=== PATIENT | female | born 1990 | race Hispanic/Latino ===

== ENCOUNTER 2021-07-28 13:50 | Inpatient (IN) | payer MEDICAID, OTHER, SELFPAY ==
[2021-07-28 14:36] VITALS: BMI 26.9
[2021-07-28] MEDS ORDERED: hydrALAZINE 20 MG/ML VIAL SLOW IVP PRN ×2 (14:55→23:20)
[2021-07-28] MEDS ORDERED: Methylergonovine 0.2 MG/ML VIAL IM PRN (14:55)
[2021-07-28] MEDS ORDERED: Butorphanol Tartrate 1 MG/ML VIAL SLOW IVP PRN (14:55)
[2021-07-28] MEDS ORDERED: Lidocaine 1% (PF) 30 ML VIAL SC PRN (14:55)
[2021-07-28] MEDS ORDERED: HYDROcodone/Acetaminophen 5/325 mg Tablet PO PRN ×3 (14:55→23:20)
[2021-07-28] MEDS ORDERED: Acetaminophen 500 MG TAB PO PRN (14:55)
[2021-07-28] MEDS ORDERED: Ondansetron PF 4 MG/2 ML Vial IVP PRN ×4 (14:55→23:30)
[2021-07-28] MEDS ORDERED: Promethazine HCl 25 MG/ML VIAL IM PRN ×3 (14:55→23:30)
[2021-07-28] MEDS ORDERED: Misoprostol 200 MCG TAB PR PRN (14:55)
[2021-07-28] MEDS ORDERED: Diphenoxylate HCl/Atropine Tablet PO PRN ×2 (14:55→23:20)
[2021-07-28] MEDS ORDERED: Ibuprofen 800 MG TAB PO PRN (14:55)
[2021-07-28] MEDS ORDERED: Lactated Ringer's 1,000 ML IV SCH (15:00)
[2021-07-28] MEDS ORDERED: NS w/ Oxytocin 30 units 500 ML IV SCH (15:00)
[2021-07-28] MEDS ORDERED: NS w/ Oxytocin 30 units 500 ML ONE ×2 (15:20→20:11)
[2021-07-28] MEDS ORDERED: Lidocaine 1% (PF) 30 ML VIAL ONE (15:23)
[2021-07-28 15:27] LABS: Hemoglobin 11.5 g/dL (12.0-15.5); Mean Corpuscular HGB CONC 31.9 g/dL (32.0-36.0); Mean Corpuscular Hemoglobin 27.8 pg (27.0-33.0); Mean Platelet Volume 10.2 fl (7.4-10.4); Platelet Count 181 10x3/uL (150-450); RBC Distribution Width 13.7 % (11.5-14.5); Red Blood Cell (RBC) Count 4.14 10x6/uL (3.90-5.03); White Blood Cell (WBC) Count 10.9 10x3/uL (3.5-10.5)
[2021-07-28 15:56] LABS: Hep B Surf Ag Non-Reactive S/CO (NonReactive)
[2021-07-28 16:13] LABS: Syphilis Antibody Index 15.23 S/CO (<1.00 Non-Reactive)
[2021-07-28 16:21] LABS: HBSAg Index 0.18 S/CO (0-0.99)
[2021-07-28] MEDS: Fentanyl 2 mcg/Bup 0.1% Cadd 100 ML ONE (16:27)
[2021-07-28] MEDS ORDERED: diphenhydrAMINE 50 MG/ML VIAL IVP PRN ×2 (16:45→23:30)
[2021-07-28] MEDS ORDERED: Fentanyl 2 mcg/Bupivacaine 0.1% Cassette 100 ML EPIDURAL SCH ×2 (16:45→23:30)
[2021-07-28] MEDS ORDERED: Acetaminophen 325 MG TAB PO PRN ×2 (16:45→23:30)
[2021-07-28] MEDS ORDERED: Communication Order-Pharmacy FS SCH ×2 (16:45→23:30)
[2021-07-28] MEDS ORDERED: Naloxone HCl 0.4 mg/ml Vial IVP PRN ×4 (16:45→23:30)
[2021-07-28] MEDS ORDERED: Hydrocerin (Eucerin) Cream 120 gm Jar TOP PRN ×2 (16:45→23:30)
[2021-07-28] MEDS ORDERED: ePHEDrine Sulfate 50 MG/10 ML VIAL SLOW IVP PRN ×2 (16:45→23:30)
[2021-07-28] MEDS ORDERED: Lactated Ringer's 1,000 ML IV PRN (17:25)
[2021-07-28] MEDS ORDERED: Carboprost 250 MCG/ML AMP ONE ×2 (19:42→20:11)
[2021-07-28] MEDS ORDERED: Methylergonovine 0.2 MG/ML VIAL ONE (19:42)
[2021-07-28] MEDS ORDERED: Misoprostol 200 MCG TAB ONE (19:42)
[2021-07-28 19:47] LABS: SARS-CoV-2 NAA Rapid Test Not Detected (NotDetected)
[2021-07-28] MEDS ORDERED: Tranexamic Acid 1,000 MG/10 ML VIAL ONE ×2 (20:03→20:10)
[2021-07-28] MEDS: Carboprost 250 MCG/ML AMP IM PRN ×2 (20:04→20:19)
[2021-07-28 21:26] LABS: Syphilis Antibody REACTIVE (Nonreactive)
[2021-07-28] MEDS ORDERED: diphenhydrAMINE 25 MG CAP PO PRN (23:20)
[2021-07-28] MEDS ORDERED: Bisacodyl 10 MG SUPP PR PRN (23:20)
[2021-07-28] MEDS ORDERED: Boostrix 0.5 ML (Tdap) VIAL IM ONE (23:20)
[2021-07-28] MEDS ORDERED: Benzocaine-Menthol 82.5 ML CAN TOP PRN (23:20)
[2021-07-28] MEDS ORDERED: Lanolin Ointment 7 GM TUBE TOP PRN (23:20)
[2021-07-28] MEDS ORDERED: Milk Of Magnesia 30 ML UDCUP PO PRN (23:20)
[2021-07-28] MEDS ORDERED: Lactated Ringer's 500 ML IV PRN (23:30)
[2021-07-29] MEDS: Fentanyl 2 mcg/Bup 0.1% Cadd 100 ML ONE (00:26)
[2021-07-29 01:15] LABS: Mean Corpuscular HGB CONC 33.4 g/dL (32.0-36.0); Mean Corpuscular Hemoglobin 28.2 pg (27.0-33.0); Mean Corpuscular Volume 84.5 fl (81.6-98.3); RBC Distribution Width 13.7 % (11.5-14.5); Red Blood Cell (RBC) Count 4.25 10x6/uL (3.90-5.03); White Blood Cell (WBC) Count 15.1 10x3/uL (3.5-10.5)
[2021-07-29 01:16] LABS: Platelet Count 155 10x3/uL (150-450)
[2021-07-29 01:32] LABS: MDiff Complete? YES
[2021-07-29 01:37] LABS: Band 14 % (5-11); Lymphocytes 4 % (21-51); Monocytes 5 % (0-10); Neutrophil 77 % (42-75)
[2021-07-29 01:38] LABS: Platelet Morphology Comment Appears Adequate
[2021-07-29 01:39] LABS: D-Dimer Test 6.88 mg/L FEU (0.19-0.50); INR-International Normal Ratio 0.9; PTT 30.8 sec (22.0-33.0); Platelet Clumps SLIGHT; Prothrombin Time 10.3 sec (9.5-12.1); RBC Morphology Normal
[2021-07-29] MEDS ORDERED: Azithromycin 1,000 MG, Admixture Fee 1 EACH in Sodium Chloride 0.9% 500 ML IVPB SCH (06:15)
[2021-07-29] MEDS: CEFAZOLIN 2 GM in Premix Bag 1 BAG IVPB SCH ×3 (06:25→21:39)
[2021-07-29] MEDS: metroNIDAZOLE 500 MG in Premix Bag 1 BAG IVPB SCH ×3 (07:50→22:37)
[2021-07-29 08:42] LABS: #Monocytes 0.7 10x3/uL (0.0-1.1); %Basophils 0.1 % (0.0-2.0); %Lymphocytes 12.6 % (18.0-47.0); %Monocytes 4.9 % (0.0-10.0); %Neutrophils 81.9 % (40.0-75.0); Hemoglobin 11.2 g/dL (12.0-15.5); Mean Corpuscular HGB CONC 32.5 g/dL (32.0-36.0); Mean Corpuscular Hemoglobin 27.9 pg (27.0-33.0); Mean Platelet Volume 9.9 fl (7.4-10.4); Platelet Count 149 10x3/uL (150-450); Red Blood Cell (RBC) Count 4.01 10x6/uL (3.90-5.03); White Blood Cell (WBC) Count 13.5 10x3/uL (3.5-10.5)
[2021-07-29] MEDS: Ibuprofen 800 MG TAB PO SCH ×3 (10:31→21:37)
[2021-07-29] MEDS: Prenatal Vitamin 1 TAB PO SCH (11:29)
[2021-07-29] MEDS: Ferrous Sulfate 325 MG TAB PO SCH ×2 (11:29→16:31)
[2021-07-29] MEDS: Docusate Calcium (SURFAK) 240 MG CAP PO SCH ×2 (11:29→21:37)
[2021-07-30] MEDS: Ibuprofen 800 MG TAB PO SCH (05:38)
[2021-07-30] MEDS: CEFAZOLIN 2 GM in Premix Bag 1 BAG IVPB SCH (05:39)
[2021-07-30] MEDS: metroNIDAZOLE 500 MG in Premix Bag 1 BAG IVPB SCH (06:29)
[2021-07-30 07:55] VITALS: BP 106/64; TEMP 97.9
[2021-07-30] MEDS: Prenatal Vitamin 1 TAB PO SCH (08:54)
[2021-07-30] MEDS: Docusate Calcium (SURFAK) 240 MG CAP PO SCH (08:54)
[2021-07-30] MEDS: Ferrous Sulfate 325 MG TAB PO SCH (08:54)
== END 2021-07-30 11:58 | disposition home or self-care (01) | DRG 768 ==
LOC: CSHLD/OP 13:50 → UNDOADMIN 15:39 → CSHLD 15:39 → CSHANTE 15:39
PROVIDERS: ADMIT Family Medicine; ATTEND Family Medicine
PROC: 10E0XZZ Delivery of Products of Conception, External Approach (ICD-10-PCS; principal; 2021-07-28)
PROC: 0W3R7ZZ Control Bleeding in Genitourinary Tract, Via Natural or Artificial Opening (ICD-10-PCS; 2021-07-28)
PROC: 0KQM0ZZ Repair Perineum Muscle, Open Approach (ICD-10-PCS; 2021-07-28)
PROC: 10907ZC Drainage of Amniotic Fluid, Therapeutic from Products of Conception, Via Natural or Artificial Opening (ICD-10-PCS; 2021-07-28)
PROC: 0UQMXZZ Repair Vulva, External Approach (ICD-10-PCS; 2021-07-28)
PROC: 30233L1 Transfusion of Nonautologous Fresh Plasma into Peripheral Vein, Percutaneous Approach (ICD-10-PCS; 2021-07-28)
PROC: 30233N1 Transfusion of Nonautologous Red Blood Cells into Peripheral Vein, Percutaneous Approach (ICD-10-PCS; 2021-07-28)
PROC: 30233K1 Transfusion of Nonautologous Frozen Plasma into Peripheral Vein, Percutaneous Approach (ICD-10-PCS; 2021-07-28)
DX: O34.211 Maternal care for low transverse scar from previous cesarean delivery (principal); Z37.0 Single live birth; O72.1 Other immediate postpartum hemorrhage; Z3A.39 39 weeks gestation of pregnancy; O70.1 Second degree perineal laceration during delivery; Z20.822 Contact with and (suspected) exposure to COVID-19
CPT/HCPCS: 36415; 36430; 85025; 85027; 85049; 85300; 85362; 85379; 85384; 85610; 85730; 86593; 86780; 86850; 86900; 86901; 87340; J0456; J0690; J2001; J2210; J2405; J2590; J3490; J7030; P9016; P9059; U0002